=== PATIENT | female | born 2000 | race Caucasian/White ===

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

== ENCOUNTER 2021-05-05 12:23 | Emergency (ER) | payer OTHER ==
[2021-05-05 13:21] VITALS: BP 107/60; PULSE 87; TEMP 98.7; BMI 40.4
[2021-05-07 16:07] LABS: SARS-CoV-2 NAA Detected (Not Detected)
== END 2021-05-05 17:48 | disposition home or self-care (01) ==
LOC: JER 12:23
DX: U07.1 COVID-19 (principal); R05.1 Acute cough
CPT/HCPCS: 87804; 87807; 99283-25; C9803; U0003; U0005

== ENCOUNTER 2022-09-19 12:28 | Emergency (ER) | payer OTHER ==
[2022-09-19 12:37] VITALS: TEMP 98.7; BMI 38.3
[2022-09-19] MEDS ORDERED: ALBUTEROL SO4 2.5/IPRATROPIUM 0.5 INH SOL 3 ML VIAL.NEB. NEB ONE ×2 (13:08→13:17)
[2022-09-19] MEDS ORDERED: methylPREDNISolone NA SUCC 125 MG/2 ML VIAL IVPUSH ONE (13:08)
[2022-09-19 13:15] VITALS: PULSE 86
[2022-09-19] MEDS ORDERED: methylPREDNISolone NA SUCC 125 MG/2 ML VIAL ONE (13:17)
[2022-09-19 14:00] LABS: HEMATOCRIT 37.2 % (32.4-45.2); LYMPH % 10.9 % (8-40); MCH 30.1 pg (25.7-33.7); MCHC 35.1 g/dl (32.0-36.0); MEAN CELL VOLUME 85.8 fl (80-96); MONO % 10.1 % (3.8-10.2); NEUT % 78.9 % (42.8-82.8); PLATELET COUNT 262 10^3/uL (134-434); RBC 4.33 M/mm3 (3.60-5.2); RDW 13.7 % (11.6-15.6); WHITE BLOOD COUNT 5.2 K/mm3 (4.0-10.0)
[2022-09-19 14:01] LABS: BASO % 0.1 % (0-2.0)
[2022-09-19 14:08] LABS: CALCIUM 8.6 mg/dL (8.5-10.1)
[2022-09-19 14:09] LABS: ALBUMIN 3.5 g/dl (3.4-5.0); BLOOD UREA NITROGEN 10.3 mg/dL (7-18)
[2022-09-19 14:12] LABS: CREATININE 0.8 mg/dL (0.55-1.3)
[2022-09-19 14:14] LABS: BILIRUBIN,TOTAL 0.3 mg/dL (0.2-1); TOT PROT 7.4 g/dl (6.4-8.2)
[2022-09-19] MEDS ORDERED: OSELTAMIVIR PHOSPHATE 75 MG CAPSULE PO ONE (16:04)
[2022-09-19] MEDS ORDERED: OSELTAMIVIR PHOSPHATE 75 MG CAPSULE ONE (16:06)
[2022-09-19 16:33] VITALS: BP 131/78; RESP 96
== END 2022-09-19 17:22 | disposition home or self-care (01) ==
LOC: JER 12:28
PROC: 3E033GC Introduction of Other Therapeutic Substance into Peripheral Vein, Percutaneous Approach (ICD-10-PCS; principal; 2022-09-19)
PROC: 3E0F7GC Introduction of Other Therapeutic Substance into Respiratory Tract, Via Natural or Artificial Opening (ICD-10-PCS; 2022-09-19)
DX: J10.1 Influenza due to other identified influenza virus with other respiratory manifestations (principal); R06.02 Shortness of breath; N93.9 Abnormal uterine and vaginal bleeding, unspecified; Z20.822 Contact with and (suspected) exposure to COVID-19
CPT/HCPCS: 0241U-QW; 36415; 71046-TC-FY; 80053; 84703; 85025; 99284-25

== ENCOUNTER 2023-05-11 12:51 | Emergency (ER) | payer OTHER ==
[2023-05-11 13:03] VITALS: BP 110/57; PULSE 71; RESP 18; TEMP 97.8; BMI 37.5
== END 2023-05-11 14:41 | disposition home or self-care (01) ==
LOC: JERFT 12:51 → JER 12:51 → JERFT 14:41
DX: S60.445A External constriction of left ring finger, initial encounter (principal); R22.32 Localized swelling, mass and lump, left upper limb; W49.04XA Ring or other jewelry causing external constriction, initial encounter
CPT/HCPCS: 99282-25

== ENCOUNTER 2023-09-27 14:05 | Emergency (ER) | payer OTHER ==
[2023-09-27 14:13] VITALS: BP 120/72; PULSE 65; RESP 18; TEMP 98; BMI 34.9
[2023-09-27] MEDS ORDERED: KETOROLAC TROMETHAMINE 30 MG/1 ML VIAL ONE (14:45)
[2023-09-27] MEDS ORDERED: ACETAMINOPHEN 500 MG TABLET (FP) ONE (14:46)
[2023-09-27] MEDS: KETOROLAC TROMETHAMINE 30 MG/1 ML VIAL IM ONE (14:50)
[2023-09-27] MEDS: ACETAMINOPHEN 500 MG TABLET (FP) PO ONE (14:51)
== END 2023-09-27 15:13 | disposition home or self-care (01) ==
LOC: JERFT 14:05
PROC: 3E0233Z Introduction of Anti-inflammatory into Muscle, Percutaneous Approach (ICD-10-PCS; principal; 2023-09-27)
DX: M62.838 Other muscle spasm (principal); M54.2 Cervicalgia
CPT/HCPCS: 99284-25

== ENCOUNTER 2024-02-12 08:46 | Emergency (ER) | payer OTHER ==
[2024-02-12 09:01] VITALS: BP 113/72; PULSE 72; RESP 20; TEMP 98.8; BMI 34.3
[2024-02-12 10:27] LABS: THROAT:GRP A STREP NOT DETECTED (NOTDETECTED)
[2024-02-12] MEDS ORDERED: ACETAMINOPHEN 500 MG TABLET (FP) ONE (11:16)
[2024-02-12] MEDS: ACETAMINOPHEN 500 MG TABLET (FP) PO ONE (11:26)
== END 2024-02-12 11:30 | disposition home or self-care (01) ==
LOC: JERFT 08:46
DX: J45.909 Unspecified asthma, uncomplicated (principal); B34.9 Viral infection, unspecified; Z76.0 Encounter for issue of repeat prescription; R06.02 Shortness of breath; R07.89 Other chest pain; M79.10 Myalgia, unspecified site; R68.83 Chills (without fever); Z20.822 Contact with and (suspected) exposure to COVID-19
CPT/HCPCS: 0241U-QW; 87651; 99283-25